=== PATIENT | male | born 1950 | race Two or more races ===

== ENCOUNTER 2017-09-11 03:48 | Inpatient (IN) | payer OTHER ==
[~2017-09-11] VITALS: Ht 170.2 cm; Wt 80.3 kg
[2017-09-11 04:23] LABS: BASOPHIL % 0.3 % (0-2); PLATELET COUNT 212 x10^3mcL (130-400); RED CELL DISTRIBUTION WIDTH 14.1 % (11.5-14.5)
[2017-09-11 04:37] LABS: CALCIUM 8.6 mg/dL (8.5-10.1); CHLORIDE SERUM 105 mmol/L (98-107); CREATININE SERUM 1.2 mg/dL (0.7-1.3); GFR1 > 60 mL/min; GLUCOSE SERUM 360 mg/dL (74-106); POTASSIUM SERUM 3.9 mmol/L (3.5-5.1); SODIUM SERUM 141 mmol/L (136-145)
[2017-09-11 04:44] LABS: ALBUMIN 3.6 g/dL (3.4-5.0); ALKALINE PHOSPHATASE 87 U/L (46-116); ALT/SGPT 54 U/L (16-63); AST/SGOT 48 U/L (15-37); BILIRUBIN TOTAL 0.55 mg/dL (0.20-1.00); TOTAL PROTEIN, SERUM 7.4 g/dL (6.4-8.2)
[2017-09-11 04:46] LABS: CK-MB 1.3 ng/mL (0-3.6)
[2017-09-11] MEDS ORDERED: INVOKAMET1 TAB PO (06:04)
[2017-09-11] MEDS ORDERED: AMARYL4 MG PO (06:06)
[2017-09-11 08:07] VITALS: BP 133/82
[2017-09-11 08:20] VITALS: BP 133/82
[2017-09-11 08:42] LABS: PHOSPHOROUS 7.1 mg/dL (2.5-4.9)
[2017-09-11 08:51] LABS: CALCIUM 8.5 mg/dL (8.5-10.1); CARBON DIOXIDE 21.1 mmol/L (21-32); CHLORIDE SERUM 106 mmol/L (98-107); GFR1 > 60 mL/min; GLUCOSE SERUM 248 mg/dL (74-106); MAGNESIUM 2.2 mg/dL (1.8-2.4); POTASSIUM SERUM 4.9 mmol/L (3.5-5.1); SODIUM SERUM 142 mmol/L (136-145)
[2017-09-11 08:53] LABS: FREE T4 1.38 ng/dL (0.76-1.46); FREE THYROXINE INDEX 3.6 ug/dL (1.4-4.5); T4(THYROXINE) 10.6 ug/dL (4.7-13.3)
[2017-09-11 09:17] VITALS: Ht 170.2 cm; Wt 80.3 kg
[2017-09-11 09:45] LABS: T3 TOTAL 0.9 ng/mL
[2017-09-11 11:40] VITALS: BP 135/80
[2017-09-11 12:26] LABS: CHOLESTEROL/HDL RATIO 2.9
[2017-09-11 15:44] VITALS: BP 122/75
[2017-09-11 19:48] VITALS: BP 113/63
[2017-09-11 20:32] LABS: CALCIUM 8.6 mg/dL (8.5-10.1); CHLORIDE SERUM 104 mmol/L (98-107); GFR1 > 60 mL/min; GLUCOSE SERUM 161 mg/dL (74-106); POTASSIUM SERUM 4.1 mmol/L (3.5-5.1); SODIUM SERUM 139 mmol/L (136-145)
[2017-09-11 21:21] VITALS: BP 115/64
== END 2017-09-11 22:31 | disposition short-term general hospital (02) | DRG 311 ==
LOC: ED 03:48 → IC 05:54
PROVIDERS: Emergency Medicine; Family Medicine
DX: I24.9 Acute ischemic heart disease, unspecified (principal); I50.43 Acute on chronic combined systolic (congestive) and diastolic (congestive) heart failure; J96.00 Acute respiratory failure, unspecified whether with hypoxia or hypercapnia; N17.0 Acute kidney failure with tubular necrosis; I47.1 Supraventricular tachycardia; E83.39 Other disorders of phosphorus metabolism; E11.65 Type 2 diabetes mellitus with hyperglycemia; E11.51 Type 2 diabetes mellitus with diabetic peripheral angiopathy without gangrene; E78.5 Hyperlipidemia, unspecified; Z79.84 Long term (current) use of oral hypoglycemic drugs; Z82.49 Family history of ischemic heart disease and other diseases of the circulatory system
CPT/HCPCS: 36600; 82962; 83880; 84439; 90658; J1644; J1815; J1940; J1956; J7030; J7613; J7620; Q0092

== ENCOUNTER 2019-06-25 22:35 | Observation (INO) | payer OTHER ==
[~2019-06-25] VITALS: Ht 172.7 cm; Wt 80.7 kg
[~2019-06-25 22:35] MED LIST: AMARYL4 MG PO; INVOKAMET1 TAB PO
[2019-06-25 22:37] VITALS: Ht 172.7 cm; Wt 80.7 kg
--- NOTE | 2019-06-25 22:48 | NUR ---
PT BIB [facility] FOR SOB THAT STARTED ABOUT 1 HR PRIOR TO EMS ARIVAL. PT HAS A EXTENSIVE CARDIAC HX PER EMS. PT O2 SAT WAS IN THE MID 80'S PER EMS AND PT HAD WHEEZES AND RHONCHI IN ALL [place]. PT SKIN WAS COOL, PALE, AND DIAPHORTIC. PT DENIES ANY CHEST PAIN OR COUGH. ALSO PER MEDICS PT WAS RECENTLY DX WITH BRONCHITIS AND STARTED TAKING ANTIBIOTICS FOR IT. PT CAME IN ON CPAP. RT AND DR. MALONE AT BEDSIDE. PT PLACED ON MONITOR.
--- NOTE | 2019-06-25 23:37 | NUR ---
PT STATES HE FEELS MUCH BETTER. PT SKIN SIGNS HAVE INPROVED BACK TO BASE LINE. PT STILL TACHYPNIC ON BIPAP. ALL OTHER VITAL SIGNS STABLE. NO ACUTE DISTRESS NOTED.
[2019-06-25 23:54] LABS: BASOPHIL % 0.3 % (0-2); PLATELET COUNT 193 x10^3mcL (130-400); RED CELL DISTRIBUTION WIDTH 13.8 % (11.5-14.5)
[2019-06-26] VITALS (10 sets, daily range): BP systolic 100–112; BP diastolic 58–69
[2019-06-26 00:10] LABS: CARBON DIOXIDE 19.3 mmol/L (21-32); CHLORIDE SERUM 102 mmol/L (98-107); GFR1 > 60 mL/min; GLUCOSE SERUM 253 mg/dL (74-106); POTASSIUM SERUM 4.7 mmol/L (3.5-5.1); SODIUM SERUM 137 mmol/L (136-145)
[2019-06-26 00:29] LABS: ALBUMIN 3.6 g/dL (3.4-5.0); ALKALINE PHOSPHATASE 91 U/L (46-116); ALT/SGPT 24 U/L (16-63); BILIRUBIN TOTAL 1.3 mg/dL (0.20-1.00); CALCIUM 8.9 mg/dL (8.5-10.1); TOTAL PROTEIN, SERUM 7.6 g/dL (6.4-8.2)
[2019-06-26 00:30] LABS: AST/SGOT 29 U/L (15-37)
--- NOTE | 2019-06-26 00:47 | NUR ---
RT REMOVED BIPAP. PT PLACED ON 5LTR NC. VITAL SIGNS STABLE. RESPIRATIONS EVEN AND UNLABORED. NO ACUTE DISTRESS NOTED.
[2019-06-26] MEDS ORDERED: TRULICITY0.75 MG/0. SC (01:03)
--- NOTE | 2019-06-26 01:03 | NUR ---
ATTEMPTED MED REC, AT BEDSIDE REPORTED THAT PT IS CURRENTLY ON AZITHROMYCIN AND TRULICITY. DOSAGES UNKNOWN. REPORTS THAT SHE WILL CALL HER CHILDREN AT HOME TO GET DOSES.
--- NOTE | 2019-06-26 01:59 | NUR ---
REPORT GIVEN TO ALEE ON MST FOR CONTINUATION OF CARE.
--- NOTE | 2019-06-26 02:15 | NUR ---
PATIENT ARRIVED VIA [facility] FROM ED ACCOMPANIED BY ED STAFF, NURSE, AND , PRISCILA. BELONGINGS AT BEDSIDE. ON DROPLET PRECAUTIONS FOR INFLUENZA B (+). PATIENT'S REPORTED PATIENT RECEIVED THE FLU VACCINE 4-5 WEEKS AGO. A/OX4, ABLE TO MAKE NEEDS KNOWN W/ CLEAR AND APPROPIATE SPEECH. NO FACIAL DROOP NOTED. DENIES DIZZINESS AND HEADACHE. TELE #12 READING SINUS TACH AT 103. DENIES CHEST PAIN/PRESSURE. PULSES PALPABLE. NO EDEMA NOTED. PATIENT'S SKIN IN PALE, COOL/MOIST TO TOUCH. PER , PATIENT LOOKS BETTER THAN WHEN HE CAME. GENERALIZED WEAKNESS NOTED. PER , PATIENT FELL LAST NIGHT TRYING TO GET OUT OF BED. PER , PATIENT HAS BEEN HAVING POOR APPETITE. PATIENT DENIES N/V. BREATHING EVEN AND UNLABORED ON 4L NC. NO SOB OR RESP DISTRESS NOTED. IV TO THE RH, 20G. PATENT AND INTACT. NO REDNESS OR SWELLING NOTED. WILL STAY THE NIGHT. OFFERED MASK, REFUSED. ORIENTED BOTH AND PATIENT TO ROOM, CALL LIGHT SYSTEM, AND BED CONTROLS. COMFORT AND SAFETY MEASURES IN PLACE. BED IS LOCKED AND IN THE LOWEST POSITION. SIDE RAILS UP X2. CALL LIGHT WITHIN REACH. WILL CONTINUE TO MONITOR
--- NOTE | 2019-06-26 03:50 | NUR ---
PATIENT RESTING IN BED. DIAPHORETIC, BS CHECKED 215. PATIENT AROUSABLE BY TACTILE STIMULI. AT FIRST WHEN ASKED HIM TO SAY WHERE HE IS, HE SAID "[place]" THEN HE WAS ABLE TO SAY "HOSPITAL" AND WAS ABLE TO IDENTIFY . SLOW TO ANSWER. OPENS EYES AND IS ABLE TO SAY HES OKAY. AC TURNED ON. REMOVED 1 BLANKET. SAFETY MEASURES IN PLACE. AT BEDSIDE. WILL CONTINUE TO MONITOR.
--- NOTE | 2019-06-26 06:00 | NUR ---
PER , PATIENT'S PRODUCT SUPPORT REP IS DR SOCO DONAHUE AND PHYSICAL THERAPY TEACHER IS DR JAZZ DIAZ. DOES NOT KNOW COMPANY OF PACEMAKER OR SETTINGS. ONLY KNOWS PACEMAKER WAS PLACED IN AUGUST 2018. CHARGE NURSE AWARE.
--- NOTE | 2019-06-26 06:27 | NUR ---
PATIENT SLEPT IN LONG INTERVALS THROUGHOUT THE NIGHT. NO ACUTE CHANGES NOTED. MORE AWAKE AND ALERT NOW, BUT LETHARGIC. AROUSABLE BY TACTILE STIMULI. A/OX4. NO DISTRESS NOTED. BREATHING EVEN AND UNLABORED ON 4L NC. NO SOB NOTED. IV TO THE RH, SALINE LOCK. PATENT AND INTACT. NO C/O PAIN. DENIES CHEST PAIN. ALL NEEDS AND CONCERNS ADDRESSED. SAFETY MEASURES IN PLACE. AT BEDSIDE. CALL LIGHT WITHIN REACH. WILL ENDORSE CARE TO DAY SHIFT RN.
--- NOTE | 2019-06-26 07:20 | NUR ---
RECEIVED PT. IN BED A/A/O X3. MILD SOB NOTED WITH EXERTION. PT. DENIES N/V AND DENIES ANY PAIN AT THIS TIME. IV SITE NOTED TO R HAND. PT. IS ON DROPLET ISOLATION (INFLUENZA B POSITIVE). BED IN LOW POS., CALL LIGHT WITHIN REACH. SIDE RAILS UP X3. SPOUSE AT BEDSIDE.
--- NOTE | 2019-06-26 11:35 | NUR ---
PT. IS BEING SEEN BY DR. CHRISTY AT THIS TIME.
--- NOTE | 2019-06-26 14:25 | NUR ---
PT. IS BEING SEEN BY DR. DUKE. ALSO REPORTED REPEATED TROPONIN LEVEL (0.373) TO DR. DUKE. PER DR. DUKE, PT. CAN BE DISCHARGED HOME TODAY.
--- NOTE | 2019-06-26 14:57 | NUR ---
DR. DUKE IN TO EVAL PT. PER PT CLEARED TO D/C HOME TODAY AND WAS INSTRUCTED TO TAKE LASIX PRESCRIBED AT HOME AND TO FOLLOW UP WITH DR. DONAHUE OUTPATIENT. ATTENDING NURSE MADE AWARE.
--- NOTE | 2019-06-26 16:35 | NUR ---
D/C HOME INSTRUCTIONS GIVEN TO PT. AND PT.'S (MRS. PRISCILA Armijo) WHO BOTH VERBALIZED UNDERSTANDING OF INSTRUCTIONS. IV H/L TO R HAND REMOVED. PRESCRIPTION GIVEN. TELE. MONITOR #12 REMOVED AND RETURNED TO TELE. MONITOR STATION.
--- NOTE | 2019-06-26 17:20 | NUR ---
PT. IS BEING DISCHARGED IN STABLE CONDITION VIA WHEELCHAIR. ALL BELONGINGS SENT HOME WITH PT. UPON DISCHARGE.
== END 2019-06-26 17:19 | disposition home or self-care (01) ==
LOC: ED 22:35 → DU 06-26 00:58
PROVIDERS: Emergency Medicine; ADMIT Internal Medicine Pulmonary Disease
DX: J11.1 Influenza due to unidentified influenza virus with other respiratory manifestations (principal); I11.0 Hypertensive heart disease with heart failure; I50.9 Heart failure, unspecified; E11.9 Type 2 diabetes mellitus without complications; I25.10 Atherosclerotic heart disease of native coronary artery without angina pectoris; R79.89 Other specified abnormal findings of blood chemistry; Z95.1 Presence of aortocoronary bypass graft; Z23 Encounter for immunization
CPT/HCPCS: 36600; 82962; 83880; 87804; 90732; G0378; J1650; J1940; J3010; J7620; Q0092